=== PATIENT | female | born 1940 | race Caucasian/White ===

== ENCOUNTER 2024-10-19 19:01 | Emergency (ER) | payer MEDICARE ==
[2024-10-19 20:25] LABS: ALT (SGPT) 20 U/L (Less than 34); AST (SGOT) 43 U/L (11-34); Albumin 3.2 g/dL (3.1-4.5); Alkaline Phosphatase 59 U/L (40-110); Anion Gap 11 mmol/L (10-20); BUN (Urea Nitrogen) 21 mg/dL (9.8-20.1); Bilirubin, Total 0.5 mg/dL (0.3-1.2); Calc. Creatinine Clearance 0 mL/min (70-130); Calcium 8.7 mg/dL (7.8-10.44); Carbon Dioxide 27 mmol/L (23-31); Chloride 105 mmol/L (98-107); Globulin 3.5 g/dL (2.4-3.5); Glucose 85 mg/dL (83-110); Potassium 3.4 mmol/L (3.5-5.1); Sodium 140 mmol/L (136-145)
[2024-10-19 20:26] LABS: #Basophils 0.03 10x3/uL (0.0-0.2); #Eosinophils 0.08 10x3/uL (0.0-0.5); #Monocytes 0.77 10x3/uL (0.0-1.1); #Neutrophils 6.80 10x3/uL (1.5-8.4); %Basophils 0.3 % (0.0-2.0); %Eosinophils 0.8 % (0.0-6.0); %Lymphocytes 18.4 % (18.0-47.0); %Monocytes 8.2 % (0.0-10.0); %Neutrophils 72.2 % (40.0-75.0); Hematocrit 35.1 % (34.9-44.5); Hemoglobin 11.3 g/dL (12.0-15.5); Mean Corpuscular Hemoglobin 30.0 pg (27.0-33.0); Mean Corpuscular Volume 93.1 fL (81.6-98.3); Platelet Count 214 10x3/uL (150-450); Red Blood Cell (RBC) Count 3.77 10x6/uL (3.90-5.03); White Blood Cell (WBC) Count 9.42 10x3/uL (3.5-10.5)
[2024-10-19 20:54] LABS: INR-International Normal Ratio 1.1; PTT 27.1 sec (22.0-33.0); Prothrombin Time 11.9 sec (9.5-12.1)
[2024-10-19 20:57] LABS: Magnesium 1.8 mg/dL (1.6-2.6)
[2024-10-19 22:09] LABS: Glucose, Urine (Dipstick) Normal (Negative); Leukocyte Negative (Negative); Protein, Urine (Dipstick) 30 mg/dl (Neg-Trace); Specific Gravity, Urine 1.020 (1.005-1.030)
[2024-10-19 22:31] LABS: Bacteria/HPF None Seen HPF (None Seen); RBC/HPF 0-3 HPF (0-3)
[2024-10-21 01:30] LABS: Campy jejuni + coli by PCR Negative (Negative); STEC Shiga Toxin 1+2 Negative (Negative); Salmonella spp. by PCR Negative (Negative); Shigella spp + EIEC by PCR Negative (Negative)
== END 2024-10-19 23:00 | disposition home or self-care (01) ==
LOC: CSHERS 19:01
DX: E86.0 Dehydration (principal); R19.7 Diarrhea, unspecified; R62.7 Adult failure to thrive; I48.91 Unspecified atrial fibrillation; E78.00 Pure hypercholesterolemia, unspecified; G30.9 Alzheimer's disease, unspecified; F02.80 Dementia in other diseases classified elsewhere, unspecified severity, without behavioral disturbance, psychotic disturbance, mood disturbance, and anxiety; Z95.0 Presence of cardiac pacemaker; Z79.899 Other long term (current) drug therapy; Z79.01 Long term (current) use of anticoagulants
CPT/HCPCS: 36415; 70450; 71045; 72125; 72170; 80053; 81001; 83605; 83735; 85025; 85610; 85730; 87040; 87086; 87324; 87449; 87505; 93005